=== PATIENT | female | born 1985 | race Hispanic/Latino ===

== ENCOUNTER 2017-03-02 00:28 | Emergency (ER) | payer BC ==
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
[2017-03-02 00:40] VITALS: BMI 40.0
[2017-03-02 00:45] VITALS: BP 132/63; PULSE 68; RESP 17; TEMP 98.3; O2SAT 100
[2017-03-02] MEDS ORDERED: Morphine 4 mg/ml ISec IM STA (00:46)
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
== END 2017-03-02 02:10 | disposition home or self-care (01) ==
LOC: ED 00:28
DX: S40.011A Contusion of right shoulder, initial encounter (principal); W22.8XXA Striking against or struck by other objects, initial encounter; Y92.810 Car as the place of occurrence of the external cause; M25.511 Pain in right shoulder
CPT/HCPCS: 73030; 96372; 99284; J2270

== ENCOUNTER 2018-04-29 06:10 | Emergency (ER) | payer BC ==
[2018-04-29 06:10] VITALS: BMI 40.0
[2018-04-29] MEDS ORDERED: Sodium Chloride 0.9% 1,000 ML IV STA (06:45)
--- NOTE | 2018-04-29 06:47 | ED PDOC ---
Arrival/HPI - General Chief Complaint: GI Problem Time Seen by Provider: 04/29/18 06:37 Historian: Patient - History of Present Illness Narrative History of Present Illness (Text): 04/29/18 06:41 Robyn Thompson is a 32 year old female, whose past medical history includes chronic Gonzalez Jim, herniated disc, chronic fatigue, and interstitial cystitis, who presents to the Emergency department complaining of diarrhea. Patient states she has been experiencing watery, non-bloody diarrhea for the past week. Patient reports associated LLQ abdominal cramping and decreased appetite. Patient denies any fever, chills, chest pain, shortness of breath, back pain, neck pain, headache, dizziness, or any other complaints. Time/Duration: 1 week Symptom Onset: Gradual Symptom Course: Unchanged Activities at Onset: Light Context: Home Past Medical History - Provider Review Nursing Documentation Reviewed: Yes - Infectious Disease Hx of Infectious Diseases: None - Past Medical History Past Medical History: No Previous - Cardiac Hx Cardiac Disorders: No - Pulmonary Hx Respiratory Disorders: No - Neurological Hx Neurological Disorder: Yes (gonzalez jim/chronic fatigue) - HEENT Hx HEENT Disorder: No - Renal Hx Renal Disorder: No - Endocrine/Metabolic Hx Endocrine Disorders: No - Hematological/Oncological Hx Blood Disorders: No - Integumentary Hx Dermatological Disorder: No - Musculoskeletal/Rheumatological Hx Musculoskeletal Disorders: No - Gastrointestinal Hx Gastrointestinal Disorders: No - Genitourinary/Gynecological Hx Genitourinary Disorders: Yes (cystitis) - Psychiatric Hx Psychophysiologic Disorder: No Hx Depression: No Hx Emotional Abuse: No Hx Physical Abuse: No Hx Substance Use: No - Surgical History Hx Tonsillectomy: Yes - Suicidal Assessment Feels Threatened In Home Enviroment: No Family/Social History - Physician Review Nursing Documentation Reviewed: Yes Family/Social History: Unknown Family HX Smoking Status: Never Smoked Hx Alcohol Use: No Hx Substance Use: No Hx Substance Use Treatment: No Allergies/Home Meds Allergies/Adverse Reactions: Allergies No Known Allergies Allergy (Verified 03/02/17 00:40) Home Medications: Home Meds Medication Instructions Recorded Confirmed Alprazolam [Xanax] 0.5 mg PO DAILY 03/02/17 04/29/18 Diclofenac 25 mg PO BID 03/02/17 04/29/18 Gabapentin [Neurontin] 300 mg PO TID 03/02/17 04/29/18 Oxycodone HCl/Acetaminophen 1 tab PO DAILY 03/02/17 04/29/18 [Oxycodone-Acetaminophen 5-325] Tizanidine HCl [Zanaflex] 2 mg PO PRN PRN 03/02/17 04/29/18 Review of Systems - Physician Review All systems were reviewed & negative as marked: Yes - Review of Systems Constitutional: Normal. absent: Fevers Eyes: Normal ENT: Normal Respiratory: Normal. absent: SOB, Cough Cardiovascular: Normal. absent: Chest Pain Gastrointestinal: Abdominal Pain, Diarrhea, Appetite Changes Genitourinary Female: Normal. absent: Dysuria, Frequency, Hematuria, Urine Output Changes Musculoskeletal: Normal. absent: Back Pain, Neck Pain Skin: Normal. absent: Rash Neurological: Normal. absent: Headache, Dizziness Endocrine: Normal Hemo/Lymphatic: Normal Psychiatric: Normal Physical Exam Vital Signs Reviewed: Yes Vital Signs Temp Pulse Resp BP Pulse Ox 04/29/18 06:36 97.6 F 100 H 16 105/46 L 99 Temperature: Afebrile Blood Pressure: Normal Pulse: Regular Respiratory Rate: Normal Appearance: Positive for: Well-Appearing, Non-Toxic, Comfortable Pain Distress: None Mental Status: Positive for: Alert and Oriented X 3 - Systems Exam Head: Present: Atraumatic, Normocephalic Pupils: Present: PERRL Extroacular Muscles: Present: EOMI Conjunctiva: Present: Normal Mouth: Present: Moist Mucous Membranes Neck: Present: Normal Range of Motion Respiratory/Chest: Present: Clear to Auscultation, Good Air Exchange. No: Respiratory Distress, Accessory Muscle Use Cardiovascular: Present: Regular Rate and Rhythm, Normal S1, S2. No: Murmurs Abdomen: Present: Tenderness (Mild LLQ tenderness). No: Distention, Peritoneal Signs Back: Present: Normal Inspection Upper Extremity: Present: Normal Inspection. No: Cyanosis, Edema Lower Extremity: Present: Normal Inspection. No: Edema Neurological: Present: GCS=15, CN II-XII Intact, Speech Normal Skin: Present: Warm, Dry, Normal Color. No: Rashes Psychiatric: Present: Alert, Oriented x 3, Normal Insight, Normal Concentration Medical Decision Making ED Course and Treatment: 04/29/18 06:41 Impression: 32 year old female complaining of diarrhea and abdominal cramping for the past week. Plan: -- Labs -- Urinalysis -- IV fluids -- Reassess and disposition Prior Visits: Notes and results from previous visits were reviewed. Progress Notes: 04/29/18 07:[address] Jose, pending labs, re-evaluation, and disposition. - Scribe Statement The provider has reviewed the documentation as recorded by the Ashokibvalentina Boo Provider Scribe Attestation: All medical record entries made by the Scribe were at my direction and personally dictated by me. I have reviewed the chart and agree that the record accurately reflects my personal performance of the history, physical exam, medical decision making, and the department course for this patient. I have also personally directed, reviewed, and agree with the discharge instructions and disposition. Disposition/Present on Arrival - Present on Arrival Any Indicators Present on Arrival: No History of DVT/PE: No History of Uncontrolled Diabetes: No Urinary Catheter: No History of Decub. Ulcer: No History Surgical Site Infection Following: None - Disposition Have Diagnosis and Disposition been Completed?: No Diagnosis: Diarrhea, Abdominal pain Disposition Time: 07:00 Condition: STABLE Referrals: Adilene Shah DO [Primary Care Provider] - Follow up with primary Forms: [employer] (Wol[place])
--- NOTE | 2018-04-29 07:19 | ED PDOC ---
Physical Exam Vital Signs Reviewed: Yes Vital Signs Temp Pulse Resp BP Pulse Ox 04/29/18 06:36 97.6 F 100 H 16 105/46 L 99 Temperature: Afebrile Blood Pressure: Normal Pulse: Regular Respiratory Rate: Normal Appearance: Positive for: Well-Appearing, Non-Toxic, Comfortable Pain Distress: None Mental Status: Positive for: Alert and Oriented X 3 - Systems Exam Head: Present: Atraumatic, Normocephalic Pupils: Present: PERRL Extroacular Muscles: Present: EOMI Conjunctiva: Present: Normal Respiratory/Chest: Present: Clear to Auscultation, Good Air Exchange. No: Respiratory Distress, Accessory Muscle Use Cardiovascular: Present: Regular Rate and Rhythm, Normal S1, S2. No: Murmurs Abdomen: No: Tenderness, Distention, Peritoneal Signs Upper Extremity: Present: Normal Inspection. No: Cyanosis, Edema Lower Extremity: Present: Normal Inspection. No: Edema Neurological: Present: GCS=15, CN II-XII Intact, Speech Normal Skin: Present: Warm, Dry, Normal Color. No: Rashes Psychiatric: Present: Alert, Oriented x 3, Normal Insight, Normal Concentration Medical Decision Making ED Course and Treatment: 04/29/18 07:10 Case endorsed to me by Dr. Balbuena for pending labs, Urinalysis, re- evaluation and final disposition. Patient is a 32 year old female, who presented to the ED earlier today for evaluation of LLQ abdominal pain and diarrhea. Patient is currently resting in bed in no acute distress. Patient currently denies any new medical complaints. 04/29/18 11:18 Upon reassessment, patient denies any nausea or abdominal pain. Patient is tolerating PO fluids. Patient given discharge instructions on gastroenteritis and advised to follow-up with her doctor. - Medication Orders Current Medication Orders: Sodium Chloride (Sodium Chloride 0.9%) 1,000 mls @ 999 mls/hr IV .Q1H1M STA Stop: 04/29/18 07:45 - Scribe Statement The provider has reviewed the documentation as recorded by the Scribe Nick Sadler. All medical record entries made by the Scribe were at my direction and personally dictated by me. I have reviewed the chart and agree that the record accurately reflects my personal performance of the history, physical exam, medical decision making, and the department course for this patient. I have also personally directed, reviewed, and agree with the discharge instructions and disposition. Disposition/Present on Arrival - Present on Arrival Any Indicators Present on Arrival: No History of DVT/PE: No History of Uncontrolled Diabetes: No Urinary Catheter: No History of Decub. Ulcer: No History Surgical Site Infection Following: None - Disposition Have Diagnosis and Disposition been Completed?: Yes Diagnosis: Diarrhea, Abdominal pain Disposition: HOME/ ROUTINE Disposition Time: 11:18 Patient Plan: Discharge Condition: IMPROVED Discharge Instructions (ExitCare): Diarrhea in Adolescents and Adults Additional Instructions: DONNA LY, thank you for letting us take care of you today. Your provider was Nabil Jose DO and you were treated for Gastroenteritis. The emergency medical care you received today was directed at your acute symptoms. If you were prescribed any medication, please fill it and take as directed. It may take several days for your symptoms to resolve. Return to the Emergency Department if your symptoms worsen, do not improve, or if you have any other problems. Please contact your doctor or call one of the physicians/clinics you have been referred to that are listed on the Patient Visit Information form that is included in your discharge packet. Bring any paperwork you were given at discharge with you along with any medications you are taking to your follow up visit. Our treatment cannot replace ongoing medical care by a primary care provider outside of the emergency department. Thank you for allowing the [facility] team to be part of your care today. If you had an X-Ray or CT scan: A Radiologist will review the ED reading if any change in treatment is needed we will contact you. If you had a blood, urine, or wound culture: It will take several days for the results, if any change in treatment is needed we will contact you. If you had an STI test: It will take 48 hours for the results. Please call after 1 week if you have not heard back. Prescriptions: Aluminum Hydroxide/Magnesium H [Maalox 30 ml] 30 ml PO Q8 #1 bottle Famotidine [Pepcid] 20 mg PO DAILY #30 tab Ondansetron ODT [Zofran ODT] 4 mg PO Q6 #14 odt Referrals: Adilene Shah DO [Primary Care Provider] - Follow up with primary Forms: [employer] (Italian), WORK NOTE
[2018-04-29 07:48] LABS: URINE BILIRUBIN NEGATIVE (NEGATIVE); URINE BLOOD NEGATIVE (NEGATIVE); URINE GLUCOSE (UA) NEGATIVE (NEGATIVE); URINE LEUKOCYTE ESTERASE SMALL Leu/uL (NEGATIVE); URINE PROTEIN NEGATIVE mg/dL (<30 mg/dL); URINE UROBILINOGEN 0.2 E.U./dL (<1 E.U./dL)
[2018-04-29 07:49] LABS: URINE APPEARANCE CLEAR (CLEAR); URINE COLOR YELLOW (YELLOW)
[2018-04-29 07:51] LABS: HEMOGLOBIN 14.5 g/dL (12.0-16.0); MEAN CELL VOLUME 85.4 fl (80.0-105.0); MEAN CORPUSCULAR HEMOGLOBIN 28.3 pg (25.0-35.0); MEAN CORPUSCULAR HGB CONC 33.2 g/dl (31.0-37.0); MEAN PLATELET VOLUME 13.1 fl (7.0-11.0); RBC 5.12 10^6/uL (3.5-6.1); WHITE BLOOD COUNT 9.2 10^3/uL (4.5-11.0)
[2018-04-29 07:56] LABS: URINE BACTERIA SMALL (NEG); URINE RBC NEGATIVE /hpf (0-2)
[2018-04-29 07:59] LABS: ALB/GLOB RATIO 1.1 (1.1-1.8); ALBUMIN 3.9 g/dL (3.0-4.8); ALT/SGPT 41 U/L (7-56); AST/SGOT 36 U/L (14-36); BLOOD UREA NITROGEN 12 mg/dL (7-21); CALCIUM 8.5 mg/dL (8.4-10.5); GFR NON-AFRICAN AMERICAN > 60; LIPASE 92 U/L (23-300)
[2018-04-29] MEDS ORDERED: Alum-Mag Hydrox-Simethicone Susp (30 mL) PO STA (08:16)
[2018-04-29] MEDS ORDERED: Atrop/Hyosc/Scopal/PB Elixir (120 ml) PO STA (08:16)
[2018-04-29] MEDS ORDERED: Lidocaine 2% Viscous 100 ml PO STA (08:16)
[2018-04-29 11:20] VITALS: BP 110/70; PULSE 98; RESP 18; TEMP 97.9
[2018-04-29 11:23] VITALS: O2SAT 99
== END 2018-04-29 11:26 | disposition home or self-care (01) ==
LOC: ED 06:10
DX: R19.7 Diarrhea, unspecified (principal); R10.9 Unspecified abdominal pain; N30.10 Interstitial cystitis (chronic) without hematuria
CPT/HCPCS: 80053; 81001; 83690; 85027; 87086; 99283; J7030

== ENCOUNTER 2018-08-12 13:33 | Observation (INO) | payer BC ==
[2018-08-12 14:21] LABS: BASO # 0.02 K/mm3 (0.0-2.0); BASO % 0.2 % (0.0-3.0); EOS % 0.3 % (1.5-5.0); HEMOGLOBIN 13.6 g/dL (12.0-16.0); LYMPH # 2.6 (1.2-3.4); LYMPH % 20.2 % (22.0-35.0); MEAN CELL VOLUME 84.7 fl (80.0-105.0); MEAN CORPUSCULAR HEMOGLOBIN 27.4 pg (25.0-35.0); MEAN CORPUSCULAR HGB CONC 32.4 g/dl (31.0-37.0); MEAN PLATELET VOLUME 13.3 fl (7.0-11.0); MONO # 0.8 (0.1-0.6); MONO % 5.9 % (1.0-6.0); PH,URINE 5.5 (4.7-8.0); RBC 4.96 10^6/uL (3.5-6.1); RED CELL DISTRIBUTION WIDTH 13.9 % (11.5-14.5); URINE BILIRUBIN NEGATIVE (NEGATIVE); URINE BLOOD NEGATIVE (NEGATIVE); URINE GLUCOSE (UA) NEGATIVE (NEGATIVE); URINE LEUKOCYTE ESTERASE SMALL Leu/uL (NEGATIVE); URINE PROTEIN NEGATIVE mg/dL (<30 mg/dL); URINE UROBILINOGEN 0.2 E.U./dL (<1 E.U./dL); WHITE BLOOD COUNT 12.6 10^3/uL (4.5-11.0)
[2018-08-12 14:25] LABS: URINE APPEARANCE CLEAR (CLEAR); URINE COLOR YELLOW (YELLOW)
[2018-08-12 14:26] LABS: HCG,QUALITATIVE URINE NEGATIVE (NEGATIVE)
--- NOTE | 2018-08-12 14:26 | ED PDOC ---
Arrival/HPI - General Chief Complaint: Chest Pain Time Seen by Provider: 08/12/18 13:43 Historian: Patient - History of Present Illness Narrative History of Present Illness (Text): 08/12/18 15:42 32 y/o female with PMH of herniated discs presents to the ED c/o chest pressure and SOB x 1 day. Pt was seen by her pain management doctor yesterday and given a trigger point injection that was completed without complication. Overnight pt developed SOB, left sided chest pressure, and multiple episodes of diaphoresis. Associated nausea and intermittent palpitations. Also noticed some red splotches on her back so she visited her pain management doctor again today who sent her here for evaluation. FH of cardiac disease. Does not take ASA. No smoking, alcohol use, control use, recent immobilization, trauma, history of malign marly. Denies fever, chills, cough, sinus congestion, sore throat, vision changes, dizziness, or any other associated symptoms. Past Medical History - Infectious Disease Hx of Infectious Diseases: None - Past Medical History Past Medical History: No Previous - Cardiac Hx Cardiac Disorders: No - Pulmonary Hx Respiratory Disorders: No - Neurological Hx Neurological Disorder: Yes (meera jim/chronic fatigue) - HEENT Hx HEENT Disorder: No - Renal Hx Renal Disorder: No - Endocrine/Metabolic Hx Endocrine Disorders: No - Hematological/Oncological Hx Blood Disorders: No - Integumentary Hx Dermatological Disorder: No - Musculoskeletal/Rheumatological Hx Musculoskeletal Disorders: No Other/Comment: neck and backi bulging disc - Gastrointestinal Hx Gastrointestinal Disorders: No - Genitourinary/Gynecological Hx Genitourinary Disorders: Yes (cystitis) - Psychiatric Hx Psychophysiologic Disorder: No Hx Depression: No Hx Emotional Abuse: No Hx Physical Abuse: No Hx Substance Use: No - Surgical History Hx Tonsillectomy: Yes - Anesthesia Hx Anesthesia Reactions: No Hx Malignant Hyperthermia: No - Suicidal Assessment Feels Threatened In Home Enviroment: No Family/Social History Smoking Status: Never Smoked Hx Alcohol Use: No Hx Substance Use: No Hx Substance Use Treatment: No Allergies/Home Meds Allergies/Adverse Reactions: Allergies No Known Allergies Allergy (Verified 03/02/17 00:40) Home Medications: Home Meds Medication Instructions Recorded Confirmed Alprazolam [Xanax] 0.5 mg PO DAILY 03/02/17 04/29/18 Diclofenac 25 mg PO BID 03/02/17 04/29/18 Gabapentin [Neurontin] 300 mg PO TID 03/02/17 04/29/18 Oxycodone HCl/Acetaminophen 1 tab PO DAILY 03/02/17 04/29/18 [Oxycodone-Acetaminophen 5-325] Tizanidine HCl [Zanaflex] 2 mg PO PRN PRN 03/02/17 04/29/18 Physical Exam Vital Signs Reviewed: Yes Vital Signs Temp Pulse Resp BP Pulse Ox 08/12/18 13:34 98.3 F 95 H 20 138/84 98 Temperature: Afebrile Blood Pressure: Normal Pulse: Tachycardic Respiratory Rate: Normal Appearance: Positive for: Well-Appearing, Non-Toxic, Comfortable Pain Distress: None Mental Status: Positive for: Alert and Oriented X 3 - Systems Exam Head: Present: Atraumatic, Normocephalic Pupils: Present: PERRL Extroacular Muscles: Present: EOMI Conjunctiva: Present: Normal Mouth: Present: Moist Mucous Membranes Neck: Present: Normal Range of Motion. No: Meningeal Signs, MIDLINE TENDERNESS, Paraspinal Tenderness Respiratory/Chest: Present: Clear to Auscultation, Good Air Exchange. No: Respiratory Distress, Accessory Muscle Use Cardiovascular: Present: Regular Rate and Rhythm, Normal S1, S2, Peripheal Pulses Present Abdomen: Present: Normal Bowel Sounds. No: Tenderness, Distention, Peritoneal Signs, Rebound, Guarding Back: Present: Other (areas of erythema in the distribution of bandage adhesive). No: CVA Tenderness, Midline Tenderness, Paraspinal Tenderness Upper Extremity: Present: Normal Inspection, Normal ROM, NORMAL PULSES, Neurovascularly Intact, Capillary Refill < 2s. No: Cyanosis, Edema, Temperature Abnormalties Lower Extremity: Present: Normal Inspection, NORMAL PULSES, Normal ROM, Neurovascularly Intact, Capillary Refill < 2 s. No: Edema, CALF TENDERNESS, John's Sign, Tenderness, Temperature Abnormalties Neurological: Present: GCS=15, CN II-XII Intact, Speech Normal, Motor Func Grossly Intact, Normal Sensory Function, Gait Normal Skin: Present: Warm, Dry, Normal Color. No: Rashes Lymphatic: No: Cervical Adenopathy Psychiatric: Present: Alert, Oriented x 3, Normal Insight, Normal Concentration, Normal Affect, Normal Mood Medical Decision Making ED Course and Treatment: Initial Plan: * CBC, CMP * Coags * Troponin * Dimer * CXR * EKG 15:[address] Garay who admits for Dr. Shah, will admit pt for observation with diagnosis of chest pain, SOB, leukocytosis to telemetry. Pt continues to c/o chest heaviness. Resting comfortably in stretcher. - Lab Interpretations Lab Results: Urine Color Yellow (YELLOW) 08/12/18 14:00 Urine Appearance Clear (CLEAR) 08/12/18 14:00 Urine pH 5.5 (4.7-8.0) 08/12/18 14:00 Ur Specific [place] >= 1.030 (1.005-1.035) 08/12/18 14:00 Urine Protein Negative mg/dL (<30 mg/dL) 08/12/18 14:00 Urine Glucose (UA) Negative mg/dL (NEGATIVE) 08/12/18 14:00 Urine Ketones Negative mg/dL (NEGATIVE) 08/12/18 14:00 Urine Blood Negative (NEGATIVE) 08/12/18 14:00 Urine Nitrate Negative (NEGATIVE) 08/12/18 14:00 Urine Bilirubin Negative (NEGATIVE) 08/12/18 14:00 Urine Urobilinogen 0.2 E.U./dL (<1 E.U./dL) 08/12/18 14:00 Ur Leukocyte Esterase Small Moo/uL (NEGATIVE) H 08/12/18 14:00 Urine HCG, Qual Negative (NEGATIVE) 08/12/18 14:00 Urine HCG, Qual Negative (NEGATIVE) 08/12/18 14:00 - RAD Interpretation Narrative RAD Interpretations (Text): 08/12/18 14:46 FINDINGS: LUNGS: No active pulmonary disease. PLEURA: No significant pleural effusion identified, no pneumothorax apparent. CARDIOVASCULAR: No aortic atherosclerotic calcification present. Normal cardiac size. No pulmonary vascular congestion. OSSEOUS STRUCTURES: No significant abnormalities. VISUALIZED UPPER ABDOMEN: Normal. OTHER FINDINGS: None. IMPRESSION: No active disease. Radiology Orders: 08/12/18 13:51 CHEST PORTABLE [RAD] Stat - Medication Orders Current Medication Orders: Discontinued Medications Aspirin (Aspirin) 325 mg PO STAT STA Stop: 08/12/18 13:51 Last Admin: 08/12/18 14:17 Dose: 325 mg Disposition/Present on Arrival - Present on Arrival History of DVT/PE: No History of Uncontrolled Diabetes: No Urinary Catheter: No History of Decub. Ulcer: No History Surgical Site Infection Following: None - Disposition
[2018-08-12 14:29] LABS: URINE BACTERIA LARGE /hpf; URINE RBC 0 - 2 /hpf (0-2)
[2018-08-12 14:30] LABS: INR 1.1; PARTIAL THROMBOPLASTIN TIME 40.3 Seconds (26.9-38.3); PROTHROMBIN TIME 12.2 SECONDS (9.4-12.5)
--- NOTE | 2018-08-12 14:35 | RAD ---
Date of service: 08/12/2018 HISTORY: SOB COMPARISON: No prior. TECHNIQUE: 1 view obtained. FINDINGS: LUNGS: No active pulmonary disease. PLEURA: No significant pleural effusion identified, no pneumothorax apparent. CARDIOVASCULAR: No aortic atherosclerotic calcification present. Normal cardiac size. No pulmonary vascular congestion. OSSEOUS STRUCTURES: No significant abnormalities. VISUALIZED UPPER ABDOMEN: Normal. OTHER FINDINGS: None. IMPRESSION: No active disease.
[2018-08-12 14:37] LABS: ALBUMIN 3.9 g/dL (3.0-4.8); ALT/SGPT 23 U/L (7-56); AST/SGOT 30 U/L (14-36); BLOOD UREA NITROGEN 20 mg/dL (7-21); CALCIUM 9.3 mg/dL (8.4-10.5); GFR NON-AFRICAN AMERICAN > 60
[2018-08-12 14:49] LABS: BARBITURATES, UR NEGATIVE (NEGATIVE); BENZODIAZEPINES, UR NEGATIVE (NEGATIVE); OPIATES, UR NEGATIVE (NEGATIVE); PHENCYCLIDINE, UR NEGATIVE (NEGATIVE); TROPONIN I < 0.01 ng/mL
[2018-08-12] MEDS ORDERED: Sodium Chloride 0.9% 1,000 ML IV STA (14:57)
[2018-08-12 15:34] LABS: VENOUS BLOOD GAS BASE EXCESS 1.7 mmol/L (0.0-2.0); VENOUS BLOOD GAS PO2 25 mm/Hg (30-55); VENOUS BLOOD PH 7.39 (7.32-7.43)
[2018-08-12] MEDS: Sodium Chloride 0.9% 1,000 ML IV SCH (16:35)
--- NOTE | 2018-08-12 18:45 | CARD ---
APPROVED REPORT Date of service: 08/12/2018 EKG Measurement Heart [id number] <Conclusion> Sinus tachycardia Right bundle branch block Abnormal ECG
[2018-08-12 19:11] VITALS: O2SAT 99; BMI 43.9
[2018-08-12] MEDS: Oxycodone/Acetaminophen 5/325 mg Tab PO SCH ×2 (19:53→22:05)
[2018-08-12 20:38] LABS: HDL CHOLESTEROL 60 mg/dL (29-60)
[2018-08-12 20:50] LABS: LDL CHOLESTEROL 91 mg/dL (0-129)
[2018-08-12 20:51] LABS: TROPONIN I < 0.01 ng/mL
--- NOTE | 2018-08-12 21:10 | HP ---
DATE OF EXAM: 08/12/2018 HISTORY OF PRESENT ILLNESS: The patient is a 32-year-old with history of back problems. She went to see her pain management yesterday. She was given trigger point injections. She states she did well, but overnight she started to have some chest pressure with mild shortness of breath, felt sweaty and chills, pain was on the left side and she felt a little nauseous and she felt her heart was beating fast. She followed with the pain management when she complained of chest discomfort and after this he advised her to come to the emergency room for further evaluation because of diaphoresis. PAST MEDICAL HISTORY: Significant for chronic back pain. ALLERGIES: SHE IS NOT ALLERGIC TO ANY MEDICATION. MEDICATIONS AT HOME: She is on tizanidine 2 mg t.i.d. p.r.n., Percocet 1 tablet three times a day as needed, Pepcid 20 mg daily, gabapentin 300 mg three times a day and Motrin 800 mg three times a day. SOCIAL HISTORY: She denies smoking, drinking, or alcohol use. PHYSICAL EXAMINATION GENERAL: She is awake, alert oriented, able to communicate. VITAL SIGNS: She is afebrile. Pulse 80, respirations 15, blood pressure 123/78. LUNGS: Bilateral fair airflow. No rhonchi or crackle. HEART: S1 and S2 audible. ABDOMEN: Soft, nontender. No rebound, no guarding. NEUROLOGIC: The patient is awake and alert, able to communicate. LABORATORY DATA: WBC 12.6, hemoglobin 13, hematocrit 42, platelet 224. Chemistry; sodium 138, potassium 3.9, chloride 106, CO2 of 23, BUN 20, creatinine 0.9, blood sugar 102. LFTs are within normal limits. Urine shows wbc is 10 to 15, epithelial cells 6 to 8. Urine drug screen is negative. EKG normal sinus rhythm, right bundle-branch block. X-ray of the chest, no active disease. ASSESSMENT 1. Chest pain, seems to be non cardiac, rule out peptic ulcer disease. 2. Strong family history of coronary artery disease. PLAN: The patient will be placed on observation. We will followup troponin, do cardiac enzymes, analgesics as needed, start her on PPI and we will reevaluate the patient in a.m. Brenden Garay MD [facility] # [id number]
[2018-08-13 00:06] VITALS: RESP 22
[2018-08-13] MEDS: Oxycodone/Acetaminophen 5/325 mg Tab PO SCH ×2 (01:53→08:10)
[2018-08-13] MEDS: Sodium Chloride 0.9% 1,000 ML IV SCH (03:00)
--- NOTE | 2018-08-13 04:38 | CP.PCM.PN ---
Subjective - Date & Time of Evaluation Date of Evaluation: 08/13/18 Time of Evaluation: 04:35 - Subjective Subjective: S: Earlier patient was seen at bedside who is sleeping. Xanax was ordered for her by resident physician and I was asked to co-sign o rder. Patient was anxious earlier and wanted to leave hospital. Medical record was reviewed. O:VSS. Not in acute distress. LUNGS:Normal breathing pattern. A:Anxiety. P:Xanax 0.25 mg PO was ordered. Objective - Vital Signs/Intake and Output Vital Signs (last 24 hours): Temp Pulse Resp BP Pulse Ox 98 F 76 22 104/69 99 08/13/18 00:01 08/13/18 02:00 08/13/18 00:01 08/13/18 00:01 08/13/18 00:01 Intake and Output: 08/12/18 08/13/18 18:59 06:59 Intake Total 420 Output Total 8 Balance 412 - Medications Medications: Current Medications Famotidine (Pepcid) 20 mg PO DAILY [facility] Sodium Chloride (Sodium Chloride 0.9%) 1,000 mls @ 100 mls/hr IV .Q10H [facility] Last Admin: 08/12/18 16:35 Dose: 100 mls/hr Ibuprofen (Motrin Tab) 600 mg PO Q6H PRN PRN Reason: Pain, moderate (4-7) Oxycodone/Acetaminophen (Percocet 5/325 Mg Tab) 1 tab PO Q6H [facility] Stop: 08/15/18 19:01 Last Admin: 08/13/18 01:53 Dose: Not Given Pantoprazole Sodium (Protonix Ec Tab) 40 mg PO 0630 [facility] Tizanidine HCl (Zanaflex) 2 mg PO TID [facility] - Labs Labs: 08/12/18 14:00 08/12/18 14:00 PT 12.2 SECONDS (9.4-12.5) 08/12/18 14:00 INR 1.10 08/12/18 14:00 APTT 40.3 Seconds (26.9-38.3) H 08/12/18 14:00
[2018-08-13] MEDS ORDERED: Pantoprazole 40 mg EC Tab PO SCH (06:30)
[2018-08-13 06:54] VITALS: BP 108/72; TEMP 97.9
[2018-08-13 07:06] LABS: FREE T4 0.85 ng/dL (0.78-2.19)
[2018-08-13 07:09] LABS: ALB/GLOB RATIO 0.9 (1.1-1.8); ALBUMIN 3.4 g/dL (3.0-4.8); ALT/SGPT 20 U/L (7-56); AST/SGOT 26 U/L (14-36); BLOOD UREA NITROGEN 14 mg/dL (7-21); CALCIUM 8.4 mg/dL (8.4-10.5); GFR NON-AFRICAN AMERICAN > 60
[2018-08-13] MEDS ORDERED: Oxycodone/Acetaminophen 5/325 mg Tab PO SCH (10:00)
[2018-08-13 10:22] VITALS: PULSE 112
--- NOTE | 2018-08-13 12:36 | DS ---
HISTORY OF PRESENT ILLNESS: The patient is 32 years old, who had trigger point injection by Dr. Quach yesterday, later on started to have chest pressure, back pain, rash, difficulty breathing, so she came to ER. The patient was placed in observation, was given NSAID, seems to be doing well, wants to go home. PHYSICAL EXAMINATION VITAL SIGNS: The patient is afebrile, pulse 70, respirations 22, blood pressure 108/72. LUNGS: Bilateral fair airflow. No rhonchi or crackles. HEART: S1 and S2 audible. ABDOMEN: Soft, obese, nontender. No rebound, no guarding. NEUROLOGIC: The patient is awake and alert, able to communicate. LABORATORY DATA: Her sodium is 139, potassium 4.2, chloride 108, CO2 of 24, BUN 14, creatinine 0.7, blood sugar of 82. LFTs are within normal limits. Three sets of cardiac enzymes are negative. Urine screen is negative. ASSESSMENT 1. Known cardiac chest pain. 2. Status post trigger point injection. 3. Obesity. 4. Degenerative disc disease. PLAN: The patient is being discharged today. She will resume her medications including tizanidine, ibuprofen and she will follow up with her PMD to repeat urinalysis, this seems to be contaminated urine specimen. She does not want to stay any longer to wait for urinalysis. Brenden Garay MD
--- NOTE | 2018-08-13 16:08 | CON ---
DATE OF CONSULTATION: 08/13/2018 CARDIOLOGY CONSULTATION HISTORY: The patient is a 32-year-old woman, who is status post injection of nerve pinch with pain management, who developed an atypical chest pain. The patient has no previous cardiac history and no cardiac risk factors other than obesity. No diabetes mellitus. No hypertension. No anginal symptoms. No shortness of breath. SOCIAL HISTORY: The patient does not smoke. She works as a teacher. The patient's symptoms are completely gone. REVIEW OF SYSTEMS: All free of cardiac symptomatology. PHYSICAL EXAMINATION: VITAL SIGNS: Blood pressure 108/72, heart rate is in the 70s. NECK: Negative JVD. LUNGS: Without rales. CARDIAC: Heart rate S1, S2. EXTREMITIES: Without edema. LABORATORY DATA: Laboratories reveal troponins are negative x3. Hemoglobin is 13.6. IMPRESSION: 1. Atypical chest pain. 2. No evidence for acute coronary syndrome. 3. Occasional palpitations. 4. Obesity. PLAN: Given these findings, there is no evidence for acute coronary syndrome. The patient's pain is not from cardiac cause. We will discontinue telemetry. No further cardiac workup is necessary. Ty Kramer MD
== END 2018-08-13 11:47 | disposition home or self-care (01) ==
LOC: ED 13:33 → ERH 15:49 → 2RNO 17:41
PROVIDERS: ADMIT Internal Medicine; ATTEND Internal Medicine
DX: R07.89 Other chest pain (principal); E66.9 Obesity, unspecified; F41.9 Anxiety disorder, unspecified; R53.82 Chronic fatigue, unspecified; Z79.899 Other long term (current) drug therapy; Z82.49 Family history of ischemic heart disease and other diseases of the circulatory system; Z68.41 Body mass index [BMI] 40.0-44.9, adult; G89.29 Other chronic pain; M54.9 Dorsalgia, unspecified; R21 Rash and other nonspecific skin eruption; R06.00 Dyspnea, unspecified
CPT/HCPCS: 36415; 71045; 80053; 80061; 81001; 81025; 82550; 82803; 83615; 83735; 84439; 84443; 84484; 84703; 85025; 85378; 85610; 85730; 87086; 93005; 96360; 99283; G0378; G0480; J7030